=== PATIENT | male | born 1970 | race Hispanic/Latino ===

== ENCOUNTER → 2018-03-09 | Outpatient (CLI) | payer BC ==
--- NOTE | 2018-03-09 17:40 | Diagnostic Imaging Report ---
EXAM: Abdomen 2 Views INDICATION: ^[id number] ^[id number] ^CALCULUS OF KIDNEY COMPARISON: None FINDINGS: Nonobstructive bowel gas pattern. No signs of pneumoperitoneum. Normal colonic stool burden. Tiny calcifications overlying left renal shadow, the largest measuring 5 mm. No acute osseous abnormality. IMPRESSION: 1. Subcentimeter nonobstructive left renal calculi, measuring up to 5 mm. 2. Nonobstructive bowel gas pattern. Signed by: Dr. Will Wynn MD on 03/09/2018 5:37 PM
== END ==
LOC: RAD 14:46
PROVIDERS: ATTEND Urology
DX: N20.0 Calculus of kidney (principal)
CPT/HCPCS: 74018

== ENCOUNTER → 2019-09-19 | Outpatient (CLI) | payer BC ==
--- NOTE | 2019-09-19 15:39 | Diagnostic Imaging Report ---
EXAM: ABDOMEN-1VIEW (KUB) DATE: 09/19/2019 2:30 PM INDICATION: Calculus of kidney COMPARISON: 03/09/2018 FINDINGS: There are 3-4 subcentimeter calcifications identified overlying the left renal shadow. The largest measures 5 mm. Findings are similar to the prior examination. No right-sided renal stone or other urinary stone is appreciated. Bowel gas pattern is nonobstructive. No other abnormal intra-abdominal calcification is appreciated. No acute osseous abnormality is identified. IMPRESSION: Subcentimeter left renal calculi as detailed above, similar to the prior examination. Signed by: Dr. Tonio Freeman MD on 09/19/2019 3:36 PM
== END ==
LOC: RAD 14:22
PROVIDERS: ATTEND Urology
DX: N20.0 Calculus of kidney (principal)
CPT/HCPCS: 74018